=== PATIENT | female | born 1940 | race Caucasian/White ===

== ENCOUNTER 2017-07-04 17:39 | Observation (INO) | payer OTHER ==
[~2017-07-04] VITALS: Ht 167.6 cm; Wt 56.0 kg
[2017-07-04 17:42] VITALS: BP 172/95; PULSE 126; RESP 26; TEMP 98.4; O2SAT 93
[2017-07-04] MEDS ORDERED: LORazepam 2 MG/ML VIAL IV PUSH ONE (18:00)
[2017-07-04] MEDS ORDERED: methylPREDNISolone SOD SUCC 125 MG/2 ML VIAL IV PUSH ONE (18:00)
[2017-07-04] MEDS: RESP: ALBUTEROL 2.5 MG/IPRATROPIUM 0.5 MG NEB (SCH) INH ×2 (18:05→18:06)
[2017-07-04 18:10] VITALS: BP 141/89; PULSE 100; RESP 20; O2SAT 98
--- NOTE | 2017-07-04 18:51 | PD ---
HPI Chief Complaint: Numbness/Tingling Time Seen by Provider: 17:55 Travel History International Travel<30 days: No Contact w/Intl Traveler<30days: No Traveled to known affect area: No History of Present Illness HPI This is a 77-year-old female who presents to the emergency department with a diagnosis of small cell lung cancer sent in by Dr. Shea for increasing right lower extremity weakness. Patient was reportedly seen by Dr. Shea in February and received her initial diagnosis. He asked her to complete staging studies and she was lost to follow-up. She presented back today with right lower extremity weakness, intermittent, worsening over the past several days with no associated loss of bowels or bladder. She also has low back pain. She is also reporting increasing shortness of breath. She uses 2 L of oxygen at night but has been having more trouble during the day. She denies any fevers or chills. She denies any chest pain. PFSH Past Medical History Anxiety: Yes Cancer: Yes (lung CA ) Chest Pain: Yes (uses nitro) COPD: Yes : 1 Para: 1 Tubal Ligation: Yes Past Surgical History Tonsillectomy: Yes Social History Alcohol Use: No Tobacco Use: Yes (1ppd) Substance Use: No Allergies-Medications (Allergen,Severity, Reaction): Coded Allergies: cefaclor (Verified Allergy, Unknown, 07/04/17) Review of Systems Except as stated in HPI: all other systems reviewed are Neg Physical Exam Narrative GENERAL: Cachectic. SKIN: Focused skin assessment warm and dry. HEAD: Atraumatic. Normocephalic. EYES: Pupils equal and round. No injection or drainage. ENT: Moist mucous membranes NECK: Trachea midline. CARDIOVASCULAR: Tachycardic. No murmur appreciated. RESPIRATORY: Diffuse wheezing bilaterally. Speaking 3-4 word sentences. GASTROINTESTINAL: Abdomen soft, non-tender, nondistended. MUSCULOSKELETAL: No obvious deformities. NEUROLOGICAL: Awake and alert. No obvious cranial nerve deficits. 4+ out of 5 strength in the right lower extremity PSYCHIATRIC: Appropriate mood and affect; insight and judgment normal. Data Data Last Documented VS Vital Signs Date Time Temp Pulse Resp B/P (MAP) Pulse Ox O2 Delivery O2 Flow Rate FiO2 07/04/17 18:10 98 Nasal Cannula 2.00 07/04/17 18:10 100 20 141/89 (106) 07/04/17 17:42 98.4 Orders Orders Complete Blood Count With Diff (07/04/17 17:57) Comprehensive Metabolic Panel (07/04/17 17:57) ^ Insert Iv (07/04/17 17:57) Ct Pulmonary Angiogram (07/04/17 ) Methylprednisolone So Succ Inj (Solumedr (07/04/17 18:00) Albuterol-Ipratropium Neb (Duoneb Neb) (07/04/17 18:00) Lorazepam Inj (Ativan Inj) (07/04/17 18:00) Labs Laboratory Tests Test 07/04/17 18:20 [facility] Medical Decision Making Medical Screen Exam Complete: Yes Emergency Medical Condition: Yes Interpretation(s) Afebrile, tachycardic, tachypneic, hypoxic, 90% on room air on my exam Differential Diagnosis COPD exacerbation, lung cancer, pulmonary embolism, pneumonia, lumbar spinal metastases, cord compression Narrative Course This is a 77-year-old female who has lung cancer who presents to the emergency department with increasing right lower extremity weakness as well as increasing shortness of breath. On arrival she had increased work of breathing and was 90 % on room air. She was placed on a monitor and an IV was established. Labs will be obtained, CT pulmonary angiogram will be obtained and patient will require observation for MRI of the lumbar spine. I discussed the case with Dr. Shea. Wendy Blackwood MD July 04, 2017 18:51
[2017-07-04 18:54] LABS: AUTOMATED NEUTROPHIL # 5.6 TH/MM3 (1.8-7.7); BASOPHIL # 0.1 TH/MM3 (0-0.2); BASOPHIL % 0.7 % (0.0-2.0); EOSINOPHIL # 0.1 TH/MM3 (0-0.4); EOSINOPHIL % 1.5 % (0.0-4.0); HEMOGLOBIN 14.2 GM/DL (11.6-15.3); LYMPH % 22.2 % (9.0-44.0); LYMPHOCYTE # 1.8 TH/MM3 (1.0-4.8); MEAN CELL VOLUME 93.7 FL (80.0-100.0); MEAN PLATELET VOLUME 7.8 FL (7.0-11.0); MONOCYTE # 0.5 TH/MM3 (0-0.9); NEUT % 69.6 % (16.0-70.0); PLATELET COUNT 267 TH/MM3 (150-450); RED BLOOD COUNT 4.58 MIL/MM3 (4.00-5.30); RED CELL DISTRIBUTION WIDTH 13.7 % (11.6-17.2)
[2017-07-04] MEDS ORDERED: DILT120C50 PO (18:54)
[2017-07-04 19:08] LABS: BLOOD UREA NITROGEN 9 MG/DL (7-18); CREATININE 0.81 MG/DL (0.50-1.00); GLOMERULAR FILTRATION RATE 69 ML/MIN (>89)
[2017-07-04 19:09] LABS: ALBUMIN 3.9 GM/DL (3.4-5.0); ALKALINE PHOSPHATASE 104 U/L (45-117); ALT (GPT) 15 U/L (10-53); AST (GOT) 16 U/L (15-37); CALCIUM 9.2 MG/DL (8.5-10.1); GLUCOSE,RANDOM 84 MG/DL (74-106); TOTAL BILIRUBIN ADULT 0.3 MG/DL (0.2-1.0); TOTAL PROTEIN 7.3 GM/DL (6.4-8.2)
[2017-07-04 19:12] LABS: BICARBONATE 29.9 MEQ/L (21.0-32.0); CHLORIDE 103 MEQ/L (98-107); SODIUM (NA) 141 MEQ/L (136-145)
--- NOTE | 2017-07-04 19:33 | PD ---
Physical Exam Date Seen by Provider: July 04, 2017 Time Seen by Provider: 19:32 Narrative Accepted transfer of care from Dr. Blackwood GENERAL: Well-developed well-nourished female no acute distress no respiratory distress SKIN: warm and dry. HEAD: Atraumatic. Normocephalic. EYES: Pupils equal and round. No scleral icterus. No injection or drainage. ENT: No nasal bleeding or discharge. Mucous membranes pink and moist. NECK: Trachea midline. No JVD. CARDIOVASCULAR: Regular rate and rhythm. RESPIRATORY: No accessory muscle use. Clear to auscultation. Breath sounds equal bilaterally. GASTROINTESTINAL: Abdomen soft, non-tender, nondistended. Hepatic and splenic margins not palpable. MUSCULOSKELETAL: Extremities without clubbing, cyanosis, or edema. No obvious deformities. NEUROLOGICAL: Awake and alert. No obvious cranial nerve deficits. Motor grossly within normal limits. Five out of 5 muscle strength in the arms and legs except for mild reproducible right lower extremity weakness 4 over 5. Normal speech. PSYCHIATRIC: Appropriate mood and affect; insight and judgment normal. Data Data Last Documented VS Vital Signs Date Time Temp Pulse Resp B/P (MAP) Pulse Ox O2 Delivery O2 Flow Rate FiO2 07/04/17 21:08 108 20 164/93 (116) 98 Nasal Cannula 2.00 07/04/17 17:42 98.4 Orders Orders Complete Blood Count With Diff (07/04/17 17:57) Comprehensive Metabolic Panel (07/04/17 17:57) ^ Insert Iv (07/04/17 17:57) Ct Pulmonary Angiogram (07/04/17 ) Methylprednisolone So Succ Inj (Solumedr (07/04/17 18:00) Albuterol-Ipratropium Neb (Duoneb Neb) (07/04/17 18:00) Lorazepam Inj (Ativan Inj) (07/04/17 18:00) Iohexol 350 Inj (Omnipaque 350 Inj) (07/04/17 20:20) Admit Order (Ed Use Only) (07/04/17 ) Entry Specialists / Telemetry LATOSHA.Q8H (07/04/17 22:55) Diet Heart Healthy (07/05/17 Breakfast) Activity Bed Rest (07/04/17 22:55) Notify Dr: Other (07/04/17 22:55) Labs Laboratory Tests Test 07/04/17 18:20 White Blood Count 8.0 TH/MM3 Red Blood Count 4.58 MIL/MM3 Hemoglobin 14.2 GM/DL Hematocrit 43.0 % Mean Corpuscular Volume 93.7 FL Mean Corpuscular Hemoglobin 31.0 PG Mean Corpuscular Hemoglobin Concent 33.0 % Red Cell Distribution Width 13.7 % Platelet Count 267 TH/MM3 Mean Platelet Volume 7.8 FL Neutrophils (%) (Auto) 69.6 % Lymphocytes (%) (Auto) 22.2 % Monocytes (%) (Auto) 6.0 % Eosinophils (%) (Auto) 1.5 % Basophils (%) (Auto) 0.7 % Neutrophils # (Auto) 5.6 TH/MM3 Lymphocytes # (Auto) 1.8 TH/MM3 Monocytes # (Auto) 0.5 TH/MM3 Eosinophils # (Auto) 0.1 TH/MM3 Basophils # (Auto) 0.1 TH/MM3 CBC Comment DIFF FINAL Differential Comment Blood Urea Nitrogen 9 MG/DL Creatinine 0.81 MG/DL Random Glucose 84 MG/DL Total Protein 7.3 GM/DL Albumin 3.9 GM/DL Calcium Level 9.2 MG/DL Alkaline Phosphatase 104 U/L Aspartate Amino Transf (AST/SGOT) 16 U/L Alanine Aminotransferase (ALT/SGPT) 15 U/L Total Bilirubin 0.3 MG/DL Sodium Level 141 MEQ/L Potassium Level 3.8 MEQ/L Chloride Level 103 MEQ/L Carbon Dioxide Level 29.9 MEQ/L Anion Gap 8 MEQ/L Estimat Glomerular Filtration Rate 69 ML/MIN [facility] Medical Record Reviewed: Yes Supervised Visit with CONRAD: No Interpretation(s) Last Impressions CT Angiography 07/04/17 0000 Signed Impressions: Service Date/Time: Tuesday, July 04, 2017 20:13 - CONCLUSION: No evidence of pulmonary embolism Garrison Tatum MD CBC & BMP Diagram 07/04/17 18:20 Total Protein 7.3, Albumin 3.9, Calcium Level 9.2, Alkaline Phosphatase 104, Aspartate Amino Transf (AST/SGOT) 16, Alanine Aminotransferase (ALT/SGPT) 15, Total Bilirubin 0.3 Vital Signs Date Time Temp Pulse Resp B/P (MAP) Pulse Ox O2 Delivery O2 Flow Rate FiO2 07/04/17 18:10 98 Nasal Cannula 2.00 07/04/17 18:10 100 20 141/89 (106) 98 Nasal Cannula 07/04/17 17:42 98.4 126 26 172/95 (120) 93 Differential Diagnosis Accepted transfer of care from Dr. Blackwood;please refer to her dictation Narrative Course Accepted transfer of care from Dr. Blackwood; follow up labs, ct, and disposition CT pulmonary angiogram negative for PE three millimeter nodule is noted CBC with automated differential and chemistries are found to be grossly within normal range Due to persistent weakness to the right lower extremity and concern for possible metastatic disease patient will be admitted to obscure imaging of the lumbar spine and for further metastatic evaluation; patient's case discussed with on-call medicine service; patient will be admitted for observation. Physician Communication Physician Communication Discussed with Dr. Randall for observation admission Diagnosis Primary Impression: COPD exacerbation Additional Impressions: Lung cancer Weakness of left lower extremity Admitting Information Admitting Physician Requests: Observation Gail Cerna MD July 04, 2017 19:33
[2017-07-04] MEDS ORDERED: IOHEXOL 350 MG/ML 10 ML VIAL (for RAD DIAG) IVCONTRAST ONE (20:20)
--- NOTE | 2017-07-04 20:45 | RADRPT ---
EXAM DATE/TIME: 07/04/2017 20:13 [facility] COMPARISON: No previous studies available for comparison. INDICATIONS : Shortness of breath. IV CONTRAST: 65 cc Omnipaque 350 (iohexol) IV RADIATION DOSE: 10.47 CTDIvol (mGy) MEDICAL HISTORY : Carcinoma, lung. SURGICAL HISTORY : None. ENCOUNTER: Initial ACUITY: 1 day PAIN SCALE: 0/10 LOCATION: Bilateral chest TECHNIQUE: Volumetric scanning of the chest was performed using a pulmonary embolism protocol MIP images were re constructed. Using automated exposure control and adjustment of the mA and/or kV according to patien t size, radiation dose was kept as low as reasonably achievable to obtain optimal diagnostic quality images. DICOM format image data is available electronically for review and comparison. Follow-up recommendations for detected pulmonary nodules are based at a minimum on nodule size and pa tient risk factors according to Fleischner Society Guidelines. FINDINGS: PULMONARY ARTERIES: No filling defects are seen in the pulmonary arteries through the segmental level. LUNGS: Severe baseline emphysema. 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 No evidence of consolidative infiltrate. PLEURAE: There is no pleural thickening or pleural effusion. MEDIASTINUM: Mildly enlarged central mediastinal lymph nodes. Eugene calcifications in the subcarinal region and le ft hilum. MUSCULOSKELETAL: Within normal limits for patient age. MISCELLANEOUS: Cysts in the left upper quadrant, incompletely seen. CONCLUSION: No evidence of pulmonary embolism Garrison Tatum MD on July 04, 2017 at 20:38 Board Certified Radiologist. This report was verified electronically.
[2017-07-04 21:08] VITALS: BP 164/93; PULSE 108; RESP 20; O2SAT 98
[2017-07-04] MEDS ORDERED: GADODIAMIDE PF 287 MG/ML 10 ML VIAL (for RAD MRI) IV PUSH ONE (22:58)
[2017-07-04] MEDS ORDERED: SODIUM CHLORIDE 0.9% FLUSH 10 ML FLUSH IV FLUSH PRN (23:45)
[2017-07-04] MEDS ORDERED: BISACODYL 10 MG SUPP RECTAL PRN (23:45)
[2017-07-04] MEDS ORDERED: ACETAMINOPHEN 325 MG TAB PO PRN (23:45)
[2017-07-04] MEDS ORDERED: NALOXONE HCL 0.4 MG/ML AMP IV PUSH PRN (23:45)
[2017-07-04] MEDS ORDERED: SENNOSIDES 8.6 MG TAB PO PRN (23:45)
[2017-07-04] MEDS ORDERED: ONDANSETRON HCL 4 MG/2 ML VIAL IVP PRN (23:45)
[2017-07-04] MEDS ORDERED: LACTULOSE SYRUP 20 GM/30 ML CUP PO PRN (23:45)
[2017-07-04] MEDS ORDERED: MAGNESIUM HYDROXIDE SUSP 30 ML CUP PO PRN (23:45)
[2017-07-05] VITALS (15 sets, daily range): BP systolic 114–149; BP diastolic 63–85; PULSE 87–114; RESP 16–24; TEMP 97.5–98.9; O2SAT 92–98
[2017-07-05] MEDS: HEPARIN SODIUM - SQ 10,000 UNITS/ML VIAL SQ SCH ×3 (00:32→23:09)
[2017-07-05] MEDS ORDERED: RESP: ALBUTEROL 2.5 MG/IPRATROPIUM 0.5 MG NEB (PRN) NEB (05:00)
--- NOTE | 2017-07-05 05:01 | HHI.HP ---
[facility] Service [facility] Primary Care Physician Josette Christianson D.O. Admission Diagnosis exacerbation copd; lung cancer; LLE weakness Diagnoses: Travel History International Travel<30 Days: No Contact w/Intl Traveler <30 Da: No Traveled to Known Affected Are: No History of Present Illness 77-year-old female with past medical history significant for COPD, hypertension and small cell lung cancer presents the emergency department for evaluation of shortness of breath, low back pain and right lower extremity weakness. The patient states that she has lower back pain which is worsening with accompanying weakness and numbness of the right lower extremity. She endorses a significant weight loss over the last 5 months and complains of continued fatigue. The patient's oncologist is Dr. Shea. She was lost to follow up for 5 months and returned to clinic yesterday. Given her symptoms, she was advised to come to the ED for further evaluation. The patient denies any chest pain. She endorses a productive cough. No fever/chills. No abdominal pain. No nausea/vomiting/diarrhea. Review of Systems Except as stated in HPI: all other systems reviewed are Neg Past Family Social History Past Medical History COPD Hypertension Small cell carcinoma of the lung Past Surgical History Colonoscopy CT-guided biopsy of lung mass Tonsillectomy Bilateral tubal ligation Reported Medications Reported Meds & Active Scripts Active Reported Diltiazem CD 24 HR 120 Mg Caper 120 Mg PO DAILY Allergies: Coded Allergies: cefaclor (Verified Allergy, Unknown, 07/04/17) Family History Negative for CAD/DM Social History Smokes approximately three quarters of a pack per day. Denies alcohol and illicit drugs. Physical Exam Vital Signs Vital Signs Date Time Temp Pulse Resp B/P (MAP) Pulse Ox O2 Delivery O2 Flow Rate FiO2 07/05/17 04:24 97.6 111 16 149/77 (101) 93 07/05/17 01:21 109 07/05/17 00:43 98.9 105 16 149/82 (104) 92 07/04/17 23:53 07/04/17 21:08 108 20 164/93 (116) 98 Nasal Cannula 2.00 07/04/17 18:10 98 Nasal Cannula 2.00 07/04/17 18:10 100 20 141/89 (106) 98 Nasal Cannula 07/04/17 17:42 98.4 126 26 172/95 (120) 93 Physical Exam GENERAL: female lying in bed SKIN: No rashes, ecchymoses or lesions. Cool and dry. HEAD: Atraumatic. Normocephalic. No temporal or scalp tenderness. EYES: Pupils equal round and reactive. Extraocular motions intact. No scleral icterus. No injection or drainage. ENT: Nose without bleeding, purulent drainage or septal hematoma. Throat without erythema, tonsillar hypertrophy or exudate. Uvula midline. Airway patent. NECK: Trachea midline. No JVD or lymphadenopathy. Supple, nontender, no meningeal signs. CARDIOVASCULAR: Regular rate and rhythm without murmurs, gallops, or rubs. RESPIRATORY: Poor air movement. No wheezes, rales, or rhonchi. GASTROINTESTINAL: Abdomen soft, non-tender, nondistended. No hepato-splenomegaly , or palpable masses. No guarding. MUSCULOSKELETAL: Extremities without clubbing, cyanosis, or edema. No joint tenderness, effusion, or edema noted. No calf tenderness. NEUROLOGICAL: Awake and alert. Cranial nerves II through XII intact. Normal speech. 4/5 strength in the right lower extremity. Laboratory Laboratory Tests Test 07/04/17 18:20 White Blood Count 8.0 Red Blood Count 4.58 Hemoglobin 14.2 Hematocrit 43.0 Mean Corpuscular Volume 93.7 Mean Corpuscular Hemoglobin 31.0 Mean Corpuscular Hemoglobin Concent 33.0 Red Cell Distribution Width 13.7 Platelet Count 267 Mean Platelet Volume 7.8 Neutrophils (%) (Auto) 69.6 Lymphocytes (%) (Auto) 22.2 Monocytes (%) (Auto) 6.0 Eosinophils (%) (Auto) 1.5 Basophils (%) (Auto) 0.7 Neutrophils # (Auto) 5.6 Lymphocytes # (Auto) 1.8 Monocytes # (Auto) 0.5 Eosinophils # (Auto) 0.1 Basophils # (Auto) 0.1 CBC Comment DIFF FINAL Differential Comment Blood Urea Nitrogen 9 Creatinine 0.81 Random Glucose 84 Total Protein 7.3 Albumin 3.9 Calcium Level 9.2 Alkaline Phosphatase 104 Aspartate Amino Transf (AST/SGOT) 16 Alanine Aminotransferase (ALT/SGPT) 15 Total Bilirubin 0.3 Sodium Level 141 Potassium Level 3.8 Chloride Level 103 Carbon Dioxide Level 29.9 Anion Gap 8 Estimat Glomerular Filtration Rate 69 Result Diagram: 07/04/17181907/04/171819 Caprini VTE Risk Assessment Caprini VTE Risk Assessment: Mod/High Risk (score >= 2) Caprini Risk Assessment Model Point Value = 1 Point Value = 2 Point Value = 3 Point Value = 5 Age 41-60 Minor surgery BMI > 25 kg/m2 Swollen legs Varicose veins or History of unexplained or recurrent spontaneous Oral contraceptives or hormone replacement Sepsis (< 1 month) Serious lung disease, including pneumonia (< 1 month) Abnormal pulmonary function Acute myocardial infarction Congestive heart failure (< 1 month) History of inflammatory bowel disease Medical patient at bed rest Age 61-74 Arthroscopic surgery Major open surgery (> 45 min) Laparoscopic surgery (> 45 min) Malignancy Confined to bed (> 72 hours) Immobilizing plaster cast Central venous access Age >= 75 History of VTE Family history of VTE Factor V Leiden Prothrombin [id number] Lupus anticoagulant Anticardiolipin antibodies Elevated serum homocysteine Heparin-induced thrombocytopenia Other congenital or acquired thrombophilia Stroke (< 1 month) Elective arthroplasty Hip, pelvis, or leg fracture Acute spinal cord injury (< 1 month) Prophylaxis Regimen Total Risk Factor Score Risk Level Prophylaxis Regimen 0-1 Low Early ambulation 2 Moderate Order ONE of the following: *Sequential Compression Device (SCD) *Heparin 5000 units SQ BID 3-4 Higher Order ONE of the following medications: *Heparin 5000 units SQ TID *Enoxaparin/Lovenox 40 mg SQ daily (WT < 150 kg, CrCl > 30 mL/min) *Enoxaparin/Lovenox 30 mg SQ daily (WT < 150 kg, CrCl > 10-29 mL/min) *Enoxaparin/Lovenox 30 mg SQ BID (WT < 150 kg, CrCl > 30 mL/min) AND/OR *Sequential Compression Device (SCD) 5 or more Highest Order ONE of the following medications: *Heparin 5000 units SQ TID (Preferred with Epidurals) *Enoxaparin/Lovenox 40 mg SQ daily (WT < 150 kg, CrCl > 30 mL/min) *Enoxaparin/Lovenox 30 mg SQ daily (WT < 150 kg, CrCl > 10-29 mL/min) *Enoxaparin/Lovenox 30 mg SQ BID (WT < 150 kg, CrCl > 30 mL/min) AND *Sequential Compression Device (SCD) Assessment and Plan Assessment and Plan Assessment/plan: 1. Shortness of breath/COPD exacerbation CTA negative for PE without evidence of infiltrate Patient with severe baseline emphysema IV steroids Duo nebs Patient reports improvement in her symptoms since arrival to the emergency department 2. Right lower extremity numbness/weakness Given patient's history of lung cancer, concern for metastatic disease MRI of the lumbar spine pending IV steroids as above 3. Small cell lung cancer Patient was lost to follow-up for 5 months and was unable to undergo a PET/CT secondary to claustrophobia Medical oncology consulted, appreciate assistance 4. Hypertension Continue home diltiazem FEN Heart healthy diet Electrolytes: Monitor and replete as needed Heparin Kallie Randall MD July 05, 2017 05:01
[2017-07-05] MEDS ORDERED: methylPREDNISolone SOD SUCC 40 MG/1 ML VIAL IV PUSH SCH (06:00)
--- NOTE | 2017-07-05 07:24 | PD.CONS ---
History of Present Illness Service Hematology/oncology. Consult Requested By The hospitalist service. Reason for Consult Patient with recent diagnosis of small cell carcinoma of the lung. New complaints of severe midline back pain with radiation down to the right leg associated with weakness and numbness of the right leg. Difficulty breathing with minimal exertion. Primary Care Physician Josette Christianson D.O. Diagnoses: History of Present Illness Chief complaint: Severe and progressive midline back pain with radiation down the right leg associated with weakness of the right leg. Difficulty breathing. HPI: Ms. 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 She underwent CT-guided biopsy of the right lung nodule which measured approximately 2.8 cm at the [facility]. She was initially referred to me in February 2016 for further workup and management. At that time she was advised systemic staging with a PET CT scan and an MRI of the brain. For various reasons she was unable to undergo staging studies; she reports actually going into the imaging center for the PET/CT scan but had to abort the imaging study in the middle due to claustrophobia and difficulty breathing. She did not reschedule and was not seen by me or any other oncologist in the interim. She came into clinic on 07/04/2017 to see me in my [place] office. At the time of presentation she reported worsening back pain and difficulty breathing. She was noted to have an O2 saturation of approximately 90% on room air. On clinical examination she had midline tenderness of the lower lumbar spine and weakness of the right leg. She was recommended referral to the emergency department for emergent evaluation to rule out metastatic disease to the vertebral bodies and possible impending spinal cord compression. Overnight the patient underwent CT imaging of the chest, she was noted to have no evidence of pulmonary emboli, she was noted to have a 3 cm mass involving the right lower lobe of the lung associate with mildly enlarged mediastinal lymph nodes. She tells me her breathing is somewhat improved with oxygen supplementation. She continues to have lower back pain but tells me this is slightly improved with her laying in bed overnight and staying off of her feet. Review of Systems Constitutional: COMPLAINS OF: Fatigue, Weight loss, DENIES: Diaphoretic episodes, Fever, Weight gain, Chills, Dizziness, Change in appetite (General loss of appetite), Night Sweats Endocrine: DENIES: Abnorml menstrual pattern, Heat/cold intolerance, Polydipsia , Polyuria, Polyphagia Eyes: DENIES: Blurred vision, Diplopia, Eye inflammation, Eye pain, Vision loss , Photosensitivity, Double Vision Ears, nose, mouth, throat: DENIES: Tinnitus, Hearing loss, Vertigo, Nasal discharge, Oral lesions, Throat pain, Hoarseness, Ear Pain, Running Nose, Epistaxis, Sinus Pain, Toothache, Odynophagia Respiratory: COMPLAINS OF: Cough, Wheezing, Sputum production, Shortness of breath, DENIES: Apneas, Snoring, Hemoptysis Cardiovascular: COMPLAINS OF: Palpitations, Dyspnea on Exertion, DENIES: Chest pain, Syncope, PND, Lower Extremity Edema, Orthopnea, Claudication Gastrointestinal: COMPLAINS OF: Anorexia, DENIES: Abdominal pain, Black stools , Bloody stools, Constipation, Diarrhea, Nausea, Vomiting, Difficulty Swallowing Genitourinary: DENIES: Abnormal vaginal bleeding, Dysmenorrhea, Dyspareunia, Sexual dysfunction (Not sexually active), Urinary frequency, Urinary incontinence, Urgency, Hematuria, Dysuria, Nocturia, Vaginal discharge Musculoskeletal: COMPLAINS OF: Joint pain, Muscle aches, Stiffness, Back pain, DENIES: Joint Swelling, Neck pain Integumentary: DENIES: Abnormal pigmentation, Pruritus, Rash, Nail changes, Breast masses, Breast skin changes, Nipple discharge Hematologic/lymphatic: DENIES: Bruising, Lymphadenopathy Immunologic/allergic: DENIES: Eczema, Urticaria Neurologic: COMPLAINS OF: Abnormal gait, Headache, Localized weakness, Poor Balance, DENIES: Paresthesias, Seizures, Speech Problems, Tremor Psychiatric: COMPLAINS OF: Anxiety, Depression, DENIES: Confusion, Mood changes , Hallucinations, Agitation, Suicidal Ideation, Homicidal Ideation, Delusions Except as stated in HPI: all other systems reviewed are Neg Past Family Social History Allergies: Coded Allergies: cefaclor (Verified Allergy, Unknown, 07/04/17) Past Medical History Small cell carcinoma of the lung COPD Emphysema Hypertension Extensive personal history of tobaccoism Past Surgical History Colonoscopy CT-guided biopsy of right lung mass. Reported Medications Outpatient medications: #1 diltiazem 120 mg once daily Guaifenesin Ipratropium/albuterol inhaled solution 4 times daily Albuterol inhaler 2 puffs up to 4 times daily as needed Active Ordered Medications Tylenol 650 mg p.o. every 4 hours needed for fever Duo nebs 1 ampule every 4 hours needed for shortness of breath Dulcolax suppository 10 mg per rectum as needed daily for constipation Diltiazem 120 mg p.o. daily Senna Colace 1 tablet p.o. twice daily as needed as needed for constipation. Heparin 5000 units subcu every 12 hours Lactulose 30 mL p.o. daily as needed for constipation Magnesium oxide 30 mL p.o. every 12 hours need for constipation Methylprednisolone 40 mg IV every 8 hours Zofran formal grams IV every 6 hours needed for nausea and vomiting Family History Parents are both Sister #1 had cancer, the patient does not know what the primary site was. Sister #2: Cancer patient is not certain what type. Social History Patient lives at home by herself., She reports smoking about a pack and a half a day for 60 years she quit about 3 years ago. Physical Exam Vital Signs Vital Signs Date Time Temp Pulse Resp B/P (MAP) Pulse Ox O2 Delivery O2 Flow Rate FiO2 07/05/17 04:24 97.6 111 16 149/77 (101) 93 07/05/17 01:21 109 07/05/17 00:43 98.9 105 16 149/82 (104) 92 07/04/17 23:53 07/04/17 21:08 108 20 164/93 (116) 98 Nasal Cannula 2.00 07/04/17 18:10 98 Nasal Cannula 2.00 07/04/17 18:10 100 20 141/89 (106) 98 Nasal Cannula 07/04/17 17:42 98.4 126 26 172/95 (120) 93 Physical Exam GENERAL: Elderly and frail lady laying in bed she coughs frequently, she is not acutely distressed. SKIN: No rashes, ecchymoses or lesions. Cool and dry. HEAD: Atraumatic. Normocephalic. No temporal or scalp tenderness. EYES: Pupils equal round and reactive. Extraocular motions intact. No scleral icterus. No injection or drainage. ENT: Nose without bleeding, purulent drainage or septal hematoma. Throat without erythema, tonsillar hypertrophy or exudate. Uvula midline. Airway patent. NECK: Trachea midline. No JVD or lymphadenopathy. Supple, nontender, no meningeal signs. CARDIOVASCULAR: Regular rate and rhythm without murmurs, gallops, or rubs. RESPIRATORY: Prolonged expiratory phase, scattered rhonchi coarse upper airway conducted breath sounds. GASTROINTESTINAL: Abdomen soft, non-tender, nondistended. No hepato-splenomegaly , or palpable masses. No guarding. MUSCULOSKELETAL: Generally decreased muscle mass, tone and strength. Lower extremities: No pretibial edema NEUROLOGICAL: Awake and alert. Cranial nerves II through XII intact. Motor and sensory grossly within normal limits. Five out of 5 muscle strength in all muscle groups. Normal speech. Laboratory Laboratory Tests Test 07/04/17 18:20 White Blood Count 8.0 Red Blood Count 4.58 Hemoglobin 14.2 Hematocrit 43.0 Mean Corpuscular Volume 93.7 Mean Corpuscular Hemoglobin 31.0 Mean Corpuscular Hemoglobin Concent 33.0 Red Cell Distribution Width 13.7 Platelet Count 267 Mean Platelet Volume 7.8 Neutrophils (%) (Auto) 69.6 Lymphocytes (%) (Auto) 22.2 Monocytes (%) (Auto) 6.0 Eosinophils (%) (Auto) 1.5 Basophils (%) (Auto) 0.7 Neutrophils # (Auto) 5.6 Lymphocytes # (Auto) 1.8 Monocytes # (Auto) 0.5 Eosinophils # (Auto) 0.1 Basophils # (Auto) 0.1 CBC Comment DIFF FINAL Differential Comment Blood Urea Nitrogen 9 Creatinine 0.81 Random Glucose 84 Total Protein 7.3 Albumin 3.9 Calcium Level 9.2 Alkaline Phosphatase 104 Aspartate Amino Transf (AST/SGOT) 16 Alanine Aminotransferase (ALT/SGPT) 15 Total Bilirubin 0.3 Sodium Level 141 Potassium Level 3.8 Chloride Level 103 Carbon Dioxide Level 29.9 Anion Gap 8 Estimat Glomerular Filtration Rate 69 Result Diagram: 07/04/17 1820 07/04/[address] angiogram of the thorax dated 07/04/2017: Conclusion: 1. No evidence of pulmonary embolus 2. 3 cm mass involving the right lower lobe of the lung. 3. Mediastinum: Mildly enlarged central mediastinal lymph nodes. No calcifications. Musculoskeletal: Within normal limits for patient's age. Without evidence of metastatic disease to the visualized skeletal structures. Assessment and Plan Assessment and Plan Ms. 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 She has to date not received systemic therapy or radiation therapy. She has in fact not yet been fully staged from a systemic standpoint. This patient after being diagnosed in November 2016 was initially seen by myself in early February 2017 in my outpatient clinic. Following that visit she was advised systemic staging with a PET CT scan and an MRI of the brain. The scans never occurred. She was lost to follow-up and eventually made her way back to my clinic on July 04, 2017. During that visit she reported severe midline back pain with radiation down her right leg associated weakness of the right leg. The concern was for her having developed metastatic disease to the spine. She was recommended inpatient evaluation. Plan: 1. Complete staging studies with CT scan of the abdomen pelvis. The patient tells me she is claustrophobic and will not be able to follow through with an MRI of the lumbar spine. 2. I will also request brain imaging this will also be a CT scan. 3. Should she be found to have evidence of metastatic disease I will request a stage defining biopsy to document presence of metastatic disease if this is suspected. 4. COPD: She is on corticosteroids and oxygen supplementation. She will likely require arrangement of oxygen supplementation at time of discharge if she qualifies for home O2 supplementation. Oncology service will coordinate care and follow with you. Discussed Condition With ER physician. Hospitalist physician. Patient. Jaxson Shea MD July 05, 2017 07:24
[2017-07-05] MEDS ORDERED: SODIUM CHLOR 0.9% 1000 ML INJ 1,000 ML IV SCH (07:30)
[2017-07-05] MEDS ORDERED: LORazepam 2 MG/ML VIAL IV PUSH PRN ×2 (09:00→09:15)
[2017-07-05] MEDS: DILTIAZEM-CD 120 MG CAP ER PO SCH (09:11)
[2017-07-05] MEDS: DOCUSATE SODIUM 50 MG/SENNA 8.6 MG TAB PO SCH ×2 (09:11→20:45)
[2017-07-05] MEDS: SODIUM CHLORIDE 0.9% FLUSH 10 ML FLUSH IV FLUSH SCH ×2 (09:11→20:45)
[2017-07-05 09:26] LABS: BASOPHIL % 0.2 % (0.0-2.0); HEMATOCRIT 41.5 % (35.0-46.0); HEMOGLOBIN 13.5 GM/DL (11.6-15.3); LYMPHOCYTE # 0.5 TH/MM3 (1.0-4.8); MEAN CELL VOLUME 93.4 FL (80.0-100.0); MEAN CORPUSCULAR HEMOGLOBIN 30.5 PG (27.0-34.0); MEAN CORPUSCULAR HGB CONC 32.6 % (32.0-36.0); MEAN PLATELET VOLUME 7.9 FL (7.0-11.0); MONOCYTE # 0.1 TH/MM3 (0-0.9); NEUT % 91.8 % (16.0-70.0); PLATELET COUNT 255 TH/MM3 (150-450); RED BLOOD COUNT 4.44 MIL/MM3 (4.00-5.30); RED CELL DISTRIBUTION WIDTH 13.9 % (11.6-17.2); WHITE BLOOD COUNT 6.5 TH/MM3 (4.0-11.0)
--- NOTE | 2017-07-05 09:54 | HHI.PR ---
Subjective Remarks Follow-up COPD exacerbation/dyspnea/history of lung cancer/lower extremity weakness July 06, 2027-patient seen and examined, reports improvement of shortness of breath as well as right lower extremity weakness since admission. Denies any bladder or bowel dysfunction. Afebrile. Case discussed with oncology. Objective Vitals Vital Signs Date Time Temp Pulse Resp B/P (MAP) Pulse Ox O2 Delivery O2 Flow Rate FiO2 07/05/17 07:10 97.5 100 16 136/70 (92) 95 07/05/17 04:24 97.6 111 16 149/77 (101) 93 07/05/17 01:21 109 07/05/17 00:43 98.9 105 16 149/82 (104) 92 07/04/17 23:53 07/04/17 21:08 108 20 164/93 (116) 98 Nasal Cannula 2.00 07/04/17 18:10 98 Nasal Cannula 2.00 07/04/17 18:10 100 20 141/89 (106) 98 Nasal Cannula 07/04/17 17:42 98.4 126 26 172/95 (120) 93 Result Diagram: 07/05/17 0843 07/04/17 [address] Angiography 07/04/17 0000 Signed Impressions: Service Date/Time: Tuesday, July 04, 2017 20:13 - CONCLUSION: No evidence of pulmonary embolism Garrison Tatum MD Objective Remarks GENERAL: NAD SKIN: Warm and dry. HEAD: Normocephalic. EYES: No scleral icterus. No injection or drainage. NECK: Supple, trachea midline. No JVD or lymphadenopathy. CARDIOVASCULAR: Regular rate and rhythm without murmurs, gallops, or rubs. RESPIRATORY: Breath sounds equal bilaterally. No accessory muscle use. GASTROINTESTINAL: Abdomen soft, non-tender, nondistended. MUSCULOSKELETAL: No cyanosis, or edema. 4/5 RLE motor and sensory, 5/5LLE, RUE and LUE BACK: Nontender without obvious deformity. No CVA tenderness. A/P Problem List: (1) COPD exacerbation ICD Code: J44.1 - Chronic obstructive pulmonary disease with (acute) exacerbation Status: Acute (2) Lung cancer ICD Code: C34.90 - Malignant neoplasm of unspecified part of unspecified bronchus or lung Status: Acute (3) Weakness of left lower extremity ICD Code: R29.898 - Other symptoms and signs involving the musculoskeletal system Status: Acute Assessment and Plan 77-year-old female 1. Shortness of breath/COPD exacerbation CTA negative for PE without evidence of infiltrate Decrease Solu-Medrol to 20 mg q. 12, start Spiriva, Symbicort, Azithromycin and continue with bronchodilators Maintain oxygen saturation above 92% 2. Right lower extremity numbness/weakness Given patient's history of lung cancer, concern for metastatic disease MRI of the lumbar spine pending 3. Small cell lung cancer Patient was lost to follow-up for 5 months and was unable to undergo a PET/ CT secondary to claustrophobia Case discussed with oncology pending brain CT and abdomen/pelvic CT pending 4. Hypertension Continue home Melvin Hardy MD July 05, 2017 09:54
[2017-07-05 10:10] LABS: CREATININE 0.81 MG/DL (0.50-1.00)
[2017-07-05 10:11] LABS: BICARBONATE 26.9 MEQ/L (21.0-32.0); CALCIUM 9.1 MG/DL (8.5-10.1)
--- NOTE | 2017-07-05 10:53 | RADRPT ---
EXAM DATE/TIME: 07/05/2017 09:25 [facility] COMPARISON: No previous studies available for comparison. INDICATIONS : Pain. Right lower extremity weakness. CONTRAST: 10 cc Omniscan (gadodiamide) IV MEDICAL HISTORY : Carcinoma, lung. Hypertension. SURGICAL HISTORY : Tonsillectomy. Tubal ligation. ENCOUNTER: Initial ACUITY: 2 day PAIN SCORE: 5/10 LOCATION: l-spine TECHNIQUE: Multiplanar multisequence MRI of the lumbar spine was performed with and without contrast. FINDINGS: The most caudal appearing lumbar vertebra is numbered as L5. Sagittal T1 pre-and postcontrast, T2 and inversion recovery images show a dextrorotoscoliosis of the lumbar spine with associated multilevel degenerative disc disease. Modic endplate changes are identif ied at L2-3 with endplate edema. Minimal grade 1 anterolisthesis of L3 on L4 probably due to facet de generation. Tarlov type cysts are seen in the upper sacral neural foramina bilaterally. 4.4 cm cyst o ff the superior pole of left kidney with a 3.6 cm cyst posteriorly in the region of the spleen. No ar eas of abnormal enhancement. There is some encroachment on the spinal canal at multiple levels, most severe at the L3-4. T12-L1: The thecal sac has a normal diameter. No evidence of disc bulge or protrusion. The neural foramina are patent bilaterally. L1-L2: The thecal sac has a normal diameter. No evidence of disc bulge or protrusion. The neural foramina are patent bilaterally. L2-L3: Mild, diffuse disc bulge and bilateral facet hypertrophy. Spinal canal and neural foramina remain zoe quate, however. L3-L4: Diffuse disc bulge with a grade 1 anterolisthesis of L3 on 4 and bilateral facet hypertrophy results in moderately severe central spinal stenosis which could affect Central nerve roots. Both neural fora allie appear to be adequate L4-L5: Mild, diffuse disc bulge with marked facet hypertrophy bilaterally. This is worse on the right with o bliteration of the epidural fat around the right L4 nerve root. The spinal canal and left neural fora allie appear to be adequate L5-S1: Bilateral facet hypertrophy but the spinal canal and neural foramina are adequate. 1.2-1.5 cm Tarlov type cysts in the S1 neural foramina CONCLUSION: 1. 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 Goldie c endplate changes at L2-3 with a minimal grade 1 anterolisthesis of L3 on 4. 2. Moderately severe central spinal stenosis at L3-4 due to diffuse disc bulge and facet hypertrophy. This could affect Central nerve roots. 3. However, there is definite compromise of the right L4 nerve due predominantly to marked facet hype rtrophy rightward at L4-5. 4. Tarlov type cysts bilaterally at S1. Benign-appearing 4.4 cm cortical cyst off the superior pole o f the left kidney with a 3.6 cm cyst posteriorly in the spleen. Domingo Howard MD on July 05, 2017 at 10:33 Board Certified Radiologist. This report was verified electronically.
[2017-07-05] MEDS: methylPREDNISolone SOD SUCC 40 MG/1 ML VIAL IV PUSH SCH ×2 (16:30→20:41)
[2017-07-05] MEDS ORDERED: DIATRIZOATE MEGLUM/DIATRIZOATE SOD 9 ML CUP PO ONE (18:45)
[2017-07-05] MEDS: BUDESONIDE-FORMOTEROL 80/4.5 MCG INHALER INH SCH (20:44)
[2017-07-05] MEDS ORDERED: IOHEXOL 350 MG/ML 10 ML VIAL (for RAD DIAG) IVCONTRAST ONE (22:49)
--- NOTE | 2017-07-05 23:20 | RADRPT ---
EXAM DATE/TIME: 07/05/2017 22:32 [facility] COMPARISON: CT PULMONARY ANGIOGRAM, July 04, 2017, 20:13. INDICATIONS : Metastatic disease IV CONTRAST: 90 cc Omnipaque 350 (iohexol) IV ; Cumulative dose for multiple exams. ORAL CONTRAST: No oral contrast ingested. RADIATION DOSE: 4.92 CTDIvol (mGy) MEDICAL HISTORY : Hypertension. Chronic obstructive pulmonary disease. Small cell lung caner SURGICAL HISTORY : Tubal ligation. ENCOUNTER: Initial ACUITY: 1 day PAIN SCALE: 3/10 LOCATION: Bilateral Abdomen TECHNIQUE: Volumetric scanning of the abdomen and pelvis was performed. Using automated exposure control and ad justment of the mA and/or kV according to patient size, radiation dose was kept as low as reasonably achievable to obtain optimal diagnostic quality images. DICOM format image data is available electro nically for review and comparison. FINDINGS: LOWER LUNGS: The visualized lower lungs are clear. LIVER: Homogeneous density without lesion. There is no dilation of the biliary tree. Tiny calcified gallsto danny layering within an otherwise normal-appearing gallbladder. SPLEEN: 320 cm low-density lesion involving the posterior margin of the spleen. Hounsfield units are 22. It i s smoothly marginated. The spleen is otherwise unremarkable. PANCREAS: Within normal limits. KIDNEYS: Normal in size and shape. There are multiple small bilateral cortical renal cysts. There is a domina nt cyst involving the upper pole of the left kidney measuring 4 cm in diameter with Hounsfield units 4. 2 small nonobstructing stones involving the right kidney. ADRENAL GLANDS: Within normal limits. VASCULAR: There is no aortic aneurysm. BOWEL/MESENTERY: The stomach, small bowel, and colon demonstrate no acute abnormality. There is no free intraperitone al air or fluid. ABDOMINAL WALL: Within normal limits. RETROPERITONEUM: There is no lymphadenopathy. BLADDER: No wall thickening or mass. REPRODUCTIVE: Within normal limits. INGUINAL: There is no lymphadenopathy or hernia. MUSCULOSKELETAL: Within normal limits for patient age. A scoliotic and degenerative spine. CONCLUSION: 1. No CT evidence to suggest metastatic disease to the abdomen or pelvis. 2. 2 nonobstructing right renal calculi. 3. Splenic and renal cysts. 4. Cholelithiasis. Bishop Foley Jr., MD on July 05, 2017 at 23:14 Board Certified Radiologist. This report was verified electronically.
--- NOTE | 2017-07-05 23:21 | RADRPT ---
EXAM DATE/TIME: 07/05/2017 22:32 [facility] COMPARISON: No previous studies available for comparison. INDICATIONS : Metastatic disease IV CONTRAST: 90 cc Omnipaque 350 (iohexol) IV ; Cumulative dose for multiple exams. RADIATION DOSE: 41.21 CTDIvol (mGy) MEDICAL HISTORY : Hypertension. Chronic obstructive pulmonary disease. Small cell lung cancer SURGICAL HISTORY : Tubal ligation. ENCOUNTER: Initial ACUITY: 1 day PAIN SCALE: 0/10 LOCATION: cranial TECHNIQUE: Multiple contiguous axial images were obtained of the head. Using automated exposure control and adj ustment of the mA and/or kV according to patient size, radiation dose was kept as low as reasonably a chievable to obtain optimal diagnostic quality images. DICOM format image data is available electro nically for review and comparison. FINDINGS: CEREBRUM: The ventricles are normal for age. No evidence of midline shift, cerebral edema or blood products. No extra-axial fluid collections are seen. POSTERIOR FOSSA: The cerebellum and brainstem are intact. The 4th ventricle is midline. The cerebellar pontine angle is unremarkable. EXTRACRANIAL: The visualized portion of the orbits is intact. SKULL: The calvaria is intact. No evidence of skull fracture. POST CONTRAST: No abnormal areas of parenchymal or dural enhancement. No evidence of blood-brain barrier breakdown. CONCLUSION: No acute disease. Bishop Foley Jr., MD on July 05, 2017 at 23:18 Board Certified Radiologist. This report was verified electronically.
[2017-07-06] VITALS (7 sets, daily range): BP systolic 113–153; BP diastolic 67–84; PULSE 72–108; RESP 16–20; TEMP 97.5–97.9; O2SAT 94–98
[2017-07-06] MEDS: methylPREDNISolone SOD SUCC 40 MG/1 ML VIAL IV PUSH SCH (08:40)
[2017-07-06] MEDS: DOCUSATE SODIUM 50 MG/SENNA 8.6 MG TAB PO SCH (08:42)
[2017-07-06] MEDS: DILTIAZEM-CD 120 MG CAP ER PO SCH (08:42)
[2017-07-06] MEDS: SODIUM CHLORIDE 0.9% FLUSH 10 ML FLUSH IV FLUSH SCH (09:00)
[2017-07-06] MEDS ORDERED: TIOTROPIUM BROMIDE 18 MCG INH INH SCH (09:00)
[2017-07-06] MEDS ORDERED: AZITHROMYCIN 250 MG TAB PO SCH (09:00)
[2017-07-06] MEDS: BUDESONIDE-FORMOTEROL 80/4.5 MCG INHALER INH SCH (09:32)
--- NOTE | 2017-07-06 09:57 | PD.ONC.PN ---
Subjective Subjective Remarks Afebrile overnight. Patient resting in bed in nad. No complaints. States back pain is gone. feels ready to go home. Objective Data Date Time Temp Pulse Resp B/P (MAP) Pulse Ox O2 Delivery O2 Flow Rate FiO2 07/06/17 07:57 97.5 77 18 117/71 (86) 98 07/06/17 04:21 97.9 77 16 113/67 (82) 94 07/06/17 04:06 72 07/06/17 00:05 86 07/05/17 23:10 98.0 97 16 134/81 (98) 95 07/05/17 20:20 95 Room Air 07/05/17 20:17 98.7 87 18 135/85 (102) 94 07/05/17 20:00 90 07/05/17 16:35 98.3 92 18 114/65 (81) 96 07/05/17 15:32 103 07/05/17 14:57 100 07/05/17 13:57 97.7 106 18 127/80 (96) 98 07/05/17 12:10 100 07/05/17 11:46 93 07/05/17 10:56 92 Room Air 07/05/17 10:40 97.6 114 24 117/63 (81) 92 07/06/17 07/06/17 07/06/17 07:00 15:00 23:00 Intake Total 120 ml Output Total 900 ml Balance -780 ml Result Diagram: 07/05/17 0843 07/05/17 0843 Imaging Studies Last Impressions Lumbar Spine MRI 07/05/17 0000 Signed Impressions: Service Date/Time: Wednesday, July 05, 2017 09:25 - CONCLUSION: 1. 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 Modic endplate changes at L2-3 with a minimal grade 1 anterolisthesis of L3 on 4. 2. Moderately severe central spinal stenosis at L3- 4 due to diffuse disc bulge and facet hypertrophy. This could affect Central nerve roots. 3. However, there is definite compromise of the right L4 nerve due predominantly to marked facet hypertrophy rightward at L4-5. 4. Tarlov type cysts bilaterally at S1. Benign-appearing 4.4 cm cortical cyst off the superior pole of the left kidney with a 3.6 cm cyst posteriorly in the spleen. Domingo oHward MD Head CT 07/05/17 0000 Signed Impressions: Service Date/Time: Wednesday, July 05, 2017 22:32 - CONCLUSION: No acute disease. Bishop Foley Jr., MD Abdomen/Pelvis CT 07/05/17 0000 Signed Impressions: Service Date/Time: Wednesday, July 05, 2017 22:32 - CONCLUSION: 1. No CT evidence to suggest metastatic disease to the abdomen or pelvis. 2. 2 nonobstructing right renal calculi. 3. Splenic and renal cysts. 4. Cholelithiasis. Bishop Foley Jr., MD CT Angiography 07/04/17 0000 Signed Impressions: Service Date/Time: Tuesday, July 04, 2017 20:13 - CONCLUSION: No evidence of pulmonary embolism Garrison Tatum MD Administered Medications Medications (Trade) Dose Ordered Sig/Emmanuel Route PRN Reason Start Time Stop Time Status Last Admin Dose Admin Sodium Chloride (NS Flush) 2 ml BID IV FLUSH 07/05/17 09:00 07/06/17 09:00 Heparin Sodium (Porcine) (Heparin Inj) 5,000 units Q12H SQ 07/05/17 00:00 07/05/17 23:09 Senna/Docusate Sodium (Janice-Colace) 1 tab BID PO 07/05/17 09:00 07/06/17 08:42 Diltiazem HCl (Cardizem Cd) 120 mg DAILY PO 07/05/17 09:00 07/06/17 08:42 Pneumococcal Polyvalent Vaccine (Pneumovax-23 Inj) 25 mcg ONCE ONCE IM 07/06/17 10:00 07/06/17 10:01 07/06/17 08:41 Methylprednisolone Sodium Succinate (SoluMEDROL INJ) 20 mg Q12HR IV PUSH 07/05/17 18:00 07/06/17 08:40 Azithromycin (Zithromax) 250 mg DAILY PO 07/06/17 09:00 07/06/17 08:42 Tiotropium Wann (Spiriva Inh) 18 mcg DAILY INH 07/06/17 09:00 07/06/17 09:32 Budesonide/ Formoterol Fumarate (Symbicort 80-4.5 Mcg Inh) 2 puff Q12HR INH 07/05/17 21:00 07/06/17 09:32 Objective Remarks GENERAL: Thin malnourished female, lying supine in bed resting. SKIN: Warm and dry. HEAD: Normocephalic. EYES: No injection or drainage. NECK: Supple, trachea midline. CARDIOVASCULAR: Regular rate and rhythm RESPIRATORY: Breath sounds equal bilaterally. No accessory muscle use. GASTROINTESTINAL: Abdomen soft, non-tender, nondistended. EXTREMITIES: No cyanosis NEUROLOGICAL:Awake, alert, and oriented x3. moving extremities. 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 --diagnosed in November 2016, then lost to follow up before staging completed. --seen in clinic July 04, 2017 and reported severe back pain. admitted to the hospital. Plan 1. oncology clear for discharge. 2. patient advised to call and make a follow up appointment in the clinic within one week. contact information given to the patient. Nancy Monroe July 06, 2017 09:57
[2017-07-06] MEDS ORDERED: PNEUMOCOCCAL POLYVALENT INJ 25 MCG/0.5 ML SYR IM ONE (10:00)
[2017-07-06] MEDS ORDERED: SYMB160A INH (11:40)
[2017-07-06] MEDS ORDERED: PRED5PAK PO (11:40)
[2017-07-06] MEDS ORDERED: Albuterol-Ipratropium Neb NEB (11:40)
[2017-07-06] MEDS ORDERED: SPIRCAP INH (11:40)
[2017-07-06] MEDS: HEPARIN SODIUM - SQ 10,000 UNITS/ML VIAL SQ SCH (12:42)
[2017-07-06 14:31] LABS: INTERNATIONAL NORMALIZED RATIO 0.9 RATIO; PROTHROMBIN TIME - PATIENT 9.4 SEC (9.8-11.6)
--- NOTE | 2017-07-06 18:22 | HHI.PR ---
Subjective Remarks Discussed with the patient the MRI result She is against any workup or intervention at this point, otherwise patient cleared by hematology no acute complaint today will discharge home Objective Vitals Vital Signs Date Time Temp Pulse Resp B/P (MAP) Pulse Ox O2 Delivery O2 Flow Rate FiO2 07/06/17 12:05 98 07/06/17 11:15 Nasal Cannula 2.00 07/06/17 11:14 97.9 108 20 153/84 (107) 94 07/06/17 08:30 97 Nasal Cannula 2.00 07/06/17 08:00 106 07/06/17 07:57 97.5 77 18 117/71 (86) 98 07/06/17 04:21 97.9 77 16 113/67 (82) 94 07/06/17 04:06 72 07/06/17 00:05 86 07/05/17 23:10 98.0 97 16 134/81 (98) 95 07/05/17 20:20 95 Room Air 07/05/17 20:17 98.7 87 18 135/85 (102) 94 07/05/17 20:00 90 I/O 07/05/17 07/05/17 07/05/17 07/06/17 07/06/17 07/06/17 06:59 14:59 22:59 06:59 14:59 22:59 Intake Total 480 ml 120 ml Output Total 1000 ml 900 ml Balance -520 ml -780 ml Intake Oral 480 ml 120 ml Output Urine Total 1000 ml 900 ml # Voids 1 # Bowel Movements 0 0 Result Diagram: 07/05/17 0843 07/05/17 0843 Objective Remarks GENERAL: This is a well-nourished, well-developed patient, in no apparent distress. CARDIOVASCULAR: RRR, no gallops, or rubs. RESPIRATORY: Fair air entry bilaterally. No W, R, or R GASTROINTESTINAL: Abdomen soft, non-tender, nondistended. Positive bowel sounds MUSCULOSKELETAL: Extremities without clubbing, cyanosis, or edema. Pedal pulses appreciated NEUROLOGICAL: Awake and alert. Moves all extremity. Normal speech.no focal neurological deficit A/P Problem List: (1) COPD exacerbation ICD Code: J44.1 - Chronic obstructive pulmonary disease with (acute) exacerbation Status: Acute (2) Lung cancer ICD Code: C34.90 - Malignant neoplasm of unspecified part of unspecified bronchus or lung Status: Acute (3) Weakness of left lower extremity ICD Code: R29.898 - Other symptoms and signs involving the musculoskeletal system Status: Acute Assessment and Plan 77-year-old female 1. Shortness of breath/COPD exacerbation CTA negative for PE without evidence of infiltrate Decrease Solu-Medrol to 20 mg q. 12, start Spiriva, Symbicort, Azithromycin and continue with bronchodilators Maintain oxygen saturation above 92% 2. Right lower extremity numbness/weakness Given patient's history of lung cancer, concern for metastatic disease MRI of the lumbar spine personally reviewed as above, discussed with the patient she totally refuses any workup or intervention on her back so she will follow up with her primary care physician 3. Small cell lung cancer Patient was lost to follow-up for 5 months and was unable to undergo a PET/ CT secondary to claustrophobia Brain abdominal and pelvic CT personally reviewed as above 4. Hypertension Continue home diltiazem 07/06: MRI of the lumbar spine showed stenosis with some bulging, patient refused any workup or intervention, she will talk to her primary care for neurosurgery referral later on, cleared by oncology to be discharged and follow- up as an outpatient Discharge patient to home Condition on discharge: Improved Regular Diet as tolerated Ad Batsheva activity Rx written: See med rec Follow-up with primary care physician and oncology Lina Shaffer MD July 06, 2017 18:22
== END 2017-07-06 15:40 | disposition left against medical advice (07) ==
LOC: NEPC 17:39 → NEDA 22:57 → NEPHCDU 23:50 → HCIN 07-05 13:39
PROVIDERS: ADMIT Hospitalist; ATTEND Hospitalist
DX: J44.1 Chronic obstructive pulmonary disease with (acute) exacerbation (principal); R20.0 Anesthesia of skin; R53.1 Weakness; C34.90 Malignant neoplasm of unspecified part of unspecified bronchus or lung; D73.4 Cyst of spleen; N28.1 Cyst of kidney, acquired; N20.0 Calculus of kidney; K80.20 Calculus of gallbladder without cholecystitis without obstruction; F40.240 Claustrophobia; I10 Essential (primary) hypertension; R29.898 Other symptoms and signs involving the musculoskeletal system; M48.061 Spinal stenosis, lumbar region without neurogenic claudication; Z87.891 Personal history of nicotine dependence; Z79.899 Other long term (current) drug therapy; Z99.81 Dependence on supplemental oxygen; Z23 Encounter for immunization
CPT/HCPCS: 70470; 71275; 72158; 74177; 80048; 80053; 85025; 85610; 90732; 94640; 94664; 96361; 96372; 96374; 96375; 96376; 97162; 99285; A9579; G0009; G0378; G8987; G8988; J1644; J2060; J2920; J2930; J7030; Q9963; Q9967; 90471